=== PATIENT | male | born 1990 | race Caucasian/White ===

== ENCOUNTER 2017-05-06 19:24 | Emergency (ER) | payer BC ==
[~2017-05-06] VITALS: Ht 188 cm; Wt 136.4 kg
[~2017-05-06 19:24] MED LIST: BACTRIM DS 8001 TAB PO; NO HOME MEDICATIONS
[2017-05-06 19:38] VITALS: TEMP 100.1
[2017-05-06] MEDS ORDERED: BACTRIM DS 8001 TAB PO (22:03)
[2017-05-06] MEDS ORDERED: NORCO 325 MG-7.1 TAB PO (22:03)
[2017-05-06 22:11] VITALS: BP 152/72; PULSE 95
== END 2017-05-06 22:27 | disposition home or self-care (01) ==
LOC: COL.ER 19:24
DX: L05.01 Pilonidal cyst with abscess (principal)

== ENCOUNTER → 2020-05-24 | Outpatient (CLI) | payer BC ==
[~2020-05-24] MED LIST changes: +NORCO 325 MG-7.1 TAB PO
== END ==
LOC: ZCOL.LAB 14:59
DX: Z20.828 Contact with and (suspected) exposure to other viral communicable diseases (principal)